=== PATIENT | female | born 1955 | race Two or more races ===

== ENCOUNTER 2019-01-29 21:17 | Emergency (ER) | payer MEDICARE, MEDICAID ==
[~2019-01-29] VITALS: Ht 167.6 cm; Wt 63.5 kg
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
--- NOTE | 2019-01-29 22:02 | NUR ---
AT BEDSIDE FOR UPDATE. PT REFUSED PAIN MEDS AT THIS TIME AND STATES: " I WILL TAKE OVER THE COUNTER PAIN MEDS AT HOME, JUST WANTED TO MAKE SURE NOTHING IS BROKEN OR IF I HAVE INFECTION." Patient discharged to home in stable conditon. Written and verbal after care instructions given. Patient verbalizes understanding of instructions. AMBULATORY. ALL BELONGINGS WITH PATIENT
[2019-01-29 22:05] VITALS: BP 114/78
== END 2019-01-29 22:03 | disposition home or self-care (01) ==
LOC: ER 21:20
DX: R07.89 Other chest pain (principal); E78.00 Pure hypercholesterolemia, unspecified
CPT/HCPCS: 71101; A4663